=== PATIENT | female | born 1990 | race Caucasian/White ===

== ENCOUNTER 2024-06-01 07:57 | Emergency (ER) | payer SELFPAY ==
[~2024-06-01] VITALS: Ht 170.2 cm; Wt 75.0 kg
[2024-06-01 08:01] VITALS: BP 120/64; PULSE 81; RESP 16; TEMP 98.1; O2SAT 98
== END 2024-06-01 08:18 ==
LOC: ER 07:57
DX: M79.672 Pain in left foot (principal); F41.9 Anxiety disorder, unspecified
CPT/HCPCS: 99283